=== PATIENT | male | born 1980 | race African-American/Black ===

== ENCOUNTER 2017-12-21 01:29 | Emergency (ER) | payer MEDICAID ==
--- NOTE | 2017-12-21 01:53 | ER Document Report ---
ED General - General Chief Complaint: Foot Injury Stated Complaint: RIGHT FOOT PAIN Time Seen by Provider: 12/21/17 01:53 Notes: Patient is a 37-year-old male that presents to the emergency department for chief complaint of right foot pain after injury. Patient states that he was cutting tree limbs last night around 8 PM, and 1 of them fell onto his right foot. He had pain associated with it, did not notice any swelling. The pains over the top of the foot. He did feel a "pop" when this happened. He has been able to put some weight on it, but has been walking with a limp. He currently rates his pain as a 6 out of 10, describes it as a throbbing ache sensation. And worse with any movement of the foot and toes. He did take a naproxen 220 mg prior to ED arrival. Past Medical History: Hypertension Past Surgical History: Denies surgical history Social History: Admits to drinking alcohol occasionally, denies tobacco or drug use. Family History: Reviewed and noncontributory for presenting illness Allergies: Reviewed, see documented allergy list. REVIEW OF SYSTEMS: Unless otherwise stated in this report the patient's positive and negative responses for review of systems for constitutional, eyes, ENT, cardiovascular, respiratory, gastrointestinal, neurological, genitourinary, musculoskeletal, and integumentary systems and related systems to the presenting problem are either as stated in the HPI or were not pertinent or were negative for the symptoms and/or complaints related to the presenting medical problem. PHYSICAL EXAMINATION: Vital signs reviewed, nursing noted reviewed. GENERAL: Well-appearing, well-nourished and in no acute distress. HEAD: Atraumatic, normocephalic. EYES: Eyes appear normal, extraocular movements intact, sclera anicteric, conjunctiva are normal. NECK: Normal range of motion, supple without lymphadenopathy LUNGS: Breath sounds clear to auscultation bilaterally and equal. No wheezes rales or rhonchi. HEART: Regular rate and rhythm without murmurs EXTREMITIES: Right foot: There is tenderness over the dorsal aspect of the right foot, without erythema, or edema or ecchymosis. No tenderness on the plantar aspect of the foot, no tenderness over the medial or lateral malleolus, tendon function intact with extension and flexion of all toes, sensation intact distally. The rest of the patient's extremity exam is grossly unremarkable, good range of motion, no pitting or edema. NEUROLOGICAL: No focal neurological deficits. Moves all extremities spontaneously Motor and sensory grossly intact on exam. PSYCH: Normal mood, normal affect. SKIN: Warm, Dry, normal turgor, no rashes or lesions noted on exposed skin TRAVEL OUTSIDE OF THE [place] IN LAST 30 DAYS: No Past Medical History - Social History Smoking Status: Never Smoker Family History: Reviewed & Not Pertinent Physical Exam - Vital signs Vitals: Temp Pulse Resp BP Pulse Ox 97.2 F 80 16 150/86 H 98 12/21/17 01:41 12/21/17 01:41 12/21/17 01:41 12/21/17 01:41 12/21/17 01:41 Course - Re-evaluation Re-evalutation: Patient seen and examined vital signs reviewed. Patint was evaluated and treated as appropriate for the patient's presenting symptoms and complaint, with consideration of any critical or life threatening conditions that may be associated with their obtained history and exam as noted above. X-rays of the right foot obtained demonstrated: What appeared to be was a nondisplaced small fracture of the medial cuneiform, which is where the patient had point tenderness, radiology interpretation was negative however, will place the patient postop shoe, and give crutches, advised ice therapy, naproxen prescription, and given [place] home pack, 6 pills, he is given follow-up with orthopedics in the area where he lives which is [facility]. The patient was re-evaluated and was stable Evaluation was most consistent with right foot fracture Plan of care was discussed with the patient at this point, after careful consideration I feel that that patient can be discharged from the emergency department, the patient was educated treatments and reasons to return to the emergency department based on their presumed diagnosis as noted above, they were advised to followup with a primary care physician in 2-3 days. Patient was agreeable to plan of care. *Note is created using voice recognition software and may contain spelling, syntax or grammatical errors. - Vital Signs Vital signs: Temp Pulse Resp BP Pulse Ox 97.2 F 80 16 150/86 H 98 12/21/17 01:41 12/21/17 01:41 12/21/17 01:41 12/21/17 01:41 12/21/17 01:41 Procedures - Immobilization Right Foot Immobilizer type: Crutches, Post-op shoe Performed by: RN Post-Proc Neuro Vasc Exam: Normal Discharge - Discharge Clinical Impression: Foot fracture, right Qualifiers: Encounter type: initial encounter Fracture type: closed Qualified Code(s): S92.901A - Unspecified fracture of right foot, initial encounter for closed fracture Condition: Stable Disposition: HOME, SELF-CARE Instructions: Foot Fracture ([facility]) Additional Instructions: Follow-up for orthopedic surgery. [address] [phone] Use the crutches when walking around, stay off of it, use ice therapy 20 minutes on and 20 minutes off 3-4 times a day, take the pain medication as needed and follow-up with orthopedics. Prescriptions: Naproxen [Naprosyn] 500 mg PO Q12 PRN #30 tablet PRN Reason: foot pain
--- NOTE | 2017-12-21 02:35 | RADIOLOGY REPORT (SQ) ---
EXAM DESCRIPTION: XR FOOT 3 OR MORE VIEWS COMPLETED DATE/TME: 12/21/2017 02:09 CLINICAL HISTORY: 37 years, Male, foot pain, injury to dorsal foot COMPARISON: None. FINDINGS: 3 views of the right foot. No acute fracture or dislocation. Normal osseous mineralization. Tarsals and metatarsals appear appropriately aligned. IMPRESSION: No acute fracture or dislocation. 2011 [employer]- All Rights Reserved
[2017-12-21] MEDS ORDERED: HYDROCODONE/ACETAMINOPHEN 5-325 MG TABLET PO ONE (02:38)
[2017-12-21] MEDS ORDERED: HYDROCODONE/ACETAMINOPHEN 5-325 MG (6 TAB/ER DISP) PO PRN (02:49)
[2017-12-21 03:11] VITALS: BP 131/95
== END 2017-12-21 03:11 | disposition home or self-care (01) ==
LOC: ER 01:29
DX: S92.901A Unspecified fracture of right foot, initial encounter for closed fracture (principal); M79.671 Pain in right foot; W22.8XXA Striking against or struck by other objects, initial encounter; I10 Essential (primary) hypertension
CPT/HCPCS: 99283

== ENCOUNTER 2018-06-27 13:58 | Emergency (ER) | payer MEDICAID ==
[2018-06-27 14:05] VITALS: BP 150/94
[2018-06-27] MEDS ORDERED: IBUPROFEN 600 MG TABLET PO ONE (14:45)
[2018-06-27] MEDS ORDERED: ACETAMINOPHEN 325 MG TABLET PO ONE (14:45)
[2018-06-27 15:22] LABS: A TYPE INFLUENZA AG NEGATIVE (NEGATIVE); B INFLUENZA AG NEGATIVE (NEGATIVE)
--- NOTE | 2018-06-27 15:30 | ER Document Report ---
HPI - HPI Time Seen by Provider: 06/27/18 14:16 Pain Level: 3 Notes: Patient is an otherwise healthy 37-year-old male who presents to the emergency department with complaints of flulike symptoms. Patient reports lightheadedness, sore throat, fever, low back pain, congestion, headache and cough. Patient reports all symptoms started yesterday. Patient has not taken any medications today for his complaints or fever. Patient denies any past medical history other than hypertension, states he is compliant with his medication for this. Patient denies any nausea, vomiting or diarrhea. Denies any syncopal episodes. Patient does report multiple sick contacts. - CONSTITUTIONAL Constitutional: DENIES: Fever, Chills - EENT EENT: REPORTS: Sore Throat. DENIES: Ear Pain, Eye problems - NEURO Neurology: DENIES: Headache, Weakness, Vision blurred, Dizzinesss / Vertigo - CARDIOVASCULAR Cardiovascular: DENIES: Chest pain - RESPIRATORY Respiratory: DENIES: Trouble Breathing, Coughing - GASTROINTESTINAL Gastrointestinal: DENIES: Abdominal Pain, Black / Bloody Stools - URINARY Urinary: DENIES: Urgency, Frequency - MUSCULOSKELETAL Musculoskeletal: DENIES: Extremity pain Past Medical History - General Information source: Patient - Social History Smoking Status: Current Every Day Smoker Frequency of alcohol use: None Drug Abuse: None - Help Family History: Reviewed & Not Pertinent Patient has suicidal ideation: No Patient has homicidal ideation: No - Medical History Medical History: Negative Renal/ Medical History: Denies: Hx Peritoneal Dialysis Surgical Hx: Negative - Immunizations Immunizations up to date: Yes Vertical Provider Document - CONSTITUTIONAL Notes: PHYSICAL EXAMINATION: GENERAL: Well-appearing, well-nourished and in no acute distress. HEAD: Atraumatic, normocephalic. EYES: Pupils equal round and reactive to light, extraocular movements intact, sclera anicteric, conjunctiva are normal. ENT: Nares patent, oropharynx clear without exudates. Moist mucous membranes. NECK: Normal range of motion, supple without lymphadenopathy LUNGS: Breath sounds clear to auscultation bilaterally and equal. No wheezes rales or rhonchi. HEART: Regular rate and rhythm without murmurs ABDOMEN: Soft, nontender, nondistended abdomen. No guarding, no rebound. No masses appreciated. Musculoskeletal: Normal range of motion, no pitting or edema. No cyanosis. NEUROLOGICAL: Cranial nerves grossly intact. Normal speech, normal gait. Normal sensory, motor exams PSYCH: Normal mood, normal affect. SKIN: Warm, Dry, normal turgor, no rashes or lesions noted. - INFECTION CONTROL TRAVEL OUTSIDE OF THE [place] IN LAST 30 DAYS: No Course - Re-evaluation Re-evalutation: 06/27/18 15:29 Influenza and rapid strep are both negative. Likely viral illness. This was discussed with the patient who verbalizes understanding and agreement with treatment plan. - Vital Signs Vital signs: Temp Pulse Resp BP Pulse Ox 101.4 F H 107 H 22 H 150/94 H 96 06/27/18 14:04 06/27/18 14:04 06/27/18 14:04 06/27/18 14:04 06/27/18 14:04 Discharge - Discharge Clinical Impression: Viral illness Condition: Stable Disposition: HOME, SELF-CARE Additional Instructions: Viral Syndrome The physician has diagnosed a viral infection. Viruses not only cause "colds," but can cause many different symptoms including generalized aching, fever, headache, cough, diarrhea, nausea, vomiting, and fatigue. The treatment, for the most part, is simply relief of symptoms. This means that antibiotics are usually not given. Rest, fluids, pain medications and, occasionally, medication for the specific symptoms that are most bothersome will be prescribed. Use good handwashing to avoid passing the virus to others. Shared toys should be cleaned with disinfectant. Clean the toilets, sinks, and counter surfaces in bathrooms. Launder clothing in hot water. Contact the physician if you develop any new or unusual symptoms such as severe headache, stiff neck, high fever, chest pain, productive cough, or shortness of breath. You should be rechecked if you don't see marked improvement within seven to 10 days. The rapid strep testing and flu testing today were negative. Please follow the above outlined directions for viral syndrome. Return to the emergency department if you experience any other red flag symptoms above such as worsening headache, stiff neck, high fever, chest pain or shortness of breath. Forms: Return to Work
== END 2018-06-27 16:07 | disposition home or self-care (01) ==
LOC: ER 13:58
DX: B34.9 Viral infection, unspecified (principal); R50.9 Fever, unspecified; R42 Dizziness and giddiness; J02.9 Acute pharyngitis, unspecified; R51 Headache; M54.5 Low back pain; R05 Cough; I10 Essential (primary) hypertension; Z79.899 Other long term (current) drug therapy; F17.200 Nicotine dependence, unspecified, uncomplicated
CPT/HCPCS: 99283; 87070; 87880; 87804; J3490 ×2